=== PATIENT | female | born 1950 | race Caucasian/White ===

== ENCOUNTER → 2023-01-21 12:19 | Outpatient (CLI) | payer MEDICARE, SELFPAY ==
[2023-01-21 13:09] LABS: Add Manual Diff / Slide Review NO; Basophils Absolute Auto 100 /uL (0-100); Basophils Percent Auto 0.9 % (0-2); Eosinophils Absolute Auto 100 /uL (0-450); Eosinophils Percent Auto 1.5 % (2-4); Hematocrit 37.9 % (36-46); Hemoglobin 12.9 g/dL (12.0-16.0); Lymphocytes Absolute Auto 1700 /uL (1100-4500); Mean Corpuscular HGB Conc 34.1 % (30-36); Mean Corpuscular Hemoglobin 33.4 PG (26-34); Monocytes Absolute Auto 400 /uL (0-900); Monocytes Percent Auto 6.2 % (3-14); Neutrophils Absolute Auto 4700 /uL (1500-7000); Neutrophils Percent Auto 67.4 % (50-75); Platelet Count 275 X10^3/uL (150-400); Red Blood Cell Count 3.86 X10^6/uL (4.0-5.2); White Blood Cell Count 6.9 X10^3/uL (4.5-11.0)
[2023-01-21 13:36] LABS: Hemoglobin A1C% w Est Avg Glu 5.7 % (4.0-6.0)
[2023-01-21 20:47] LABS: Alanine Aminotransferase 14 IU/L (<35); Albumin 3.9 g/dL (3.5-5.0); Albumin Globulin Ratio 1.2 (1.0-2.8); Alkaline Phosphatase 88 U/L (38-126); Aspartate Aminotransferase 24 IU/L (14-36); BUN Creatinine Ratio 32.4 (6-22); Bilirubin Total 0.5 mg/dL (0.2-1.3); Blood Urea Nitrogen 22 mg/dL (7-17); Calcium 9.6 mg/dL (8.4-10.2); Carbon Dioxide 28 mmol/L (22-32); Chloride 104 mmol/L (98-107); Estimated Glomerular Filt Rate > 60 mL/min (>60); Globulin 3.2 g/dL (1.7-4.1); Glucose 100 mg/dL (80-110); HEMOLYSIS < 15 (0-50); Potassium 4.4 mmol/L (3.4-5.1); Sodium 137 mmol/L (137-145); Total Protein 7.1 g/dL (6.3-8.2)
[2023-01-21 20:59] LABS: Free T4, Direct Thyroxine 1.48 ng/dL (0.78-2.19)
[2023-01-21 21:13] LABS: Thyroid Stimulating Hormone 9.66 uIU/mL (0.47-4.68)
== END ==
PROVIDERS: PCP Family Medicine; Referring Provider Family Medicine; Visit Provider Family Medicine
DX: E03.9 Hypothyroidism, unspecified (principal); J45.909 Unspecified asthma, uncomplicated
CPT/HCPCS: 36415; 80053; 83036; 84439; 84443; 85025

== ENCOUNTER → 2023-03-25 10:44 | Outpatient (CLI) | payer MEDICARE, SELFPAY ==
[2023-03-25 12:00] LABS: Free T4, Direct Thyroxine 0.91 ng/dL (0.78-2.19)
[2023-03-25 12:14] LABS: Thyroid Stimulating Hormone 7.66 uIU/mL (0.47-4.68)
== END ==
PROVIDERS: PCP Family Medicine; Referring Provider Family Medicine; Visit Provider Family Medicine
DX: E03.9 Hypothyroidism, unspecified (principal)
CPT/HCPCS: 36415; 84439; 84443

== ENCOUNTER → 2023-05-02 09:49 | Outpatient (CLI) | payer MEDICARE, SELFPAY ==
--- NOTE | 2023-05-02 09:53 | DI.MG.S_ITS ---
BILATERAL DIGITAL SCREENING MAMMOGRAM 3D/2D WITH CAD: 05/02/2023 CLINICAL: Routine screening. Personal history of right breast cancer. Comparison is made to exams dated: 06/08/2018 mammogram, 06/08/2018 mammogram, 09/06/2019 mammogram, and 09/29/2020 mammogram - outside facility. There are scattered areas of fibroglandular density in both breasts (category b / 25%-50% glandular tissue). Current study was also evaluated with a Computer Aided Detection (CAD) system. There are benign post operative findings in the right breast. No significant masses, calcifications, or other findings are seen in either breast. There has been no significant interval change. IMPRESSION: BENIGN There is no mammographic evidence of malignancy. A 1 year screening mammogram is recommended. This exam was interpreted at Station ID: [id number]. NOTE: For mammograms, a report in lay terms will be sent to the patient. Approximately 15% of breast malignancies will not be visualized mammographically. In the management of a palpable breast mass, a negative mammogram must not discourage biopsy of a clinically suspicious lesion. Electronically Signed By: Gerri Webb M.D., PH.D mike/penrad:05/02/2023 23:14:10 letter sent: Normal Exam ACR BI-RADS Category 2: Benign Finding(s) 3342F
== END ==
LOC: MAMMO 09:51
PROVIDERS: PCP Family Medicine; Referring Provider Family Medicine; Visit Provider Family Medicine
DX: Z12.31 Encounter for screening mammogram for malignant neoplasm of breast (principal); Z85.3 Personal history of malignant neoplasm of breast; R92.323 Mammographic fibroglandular density, bilateral breasts
CPT/HCPCS: 77063; 77067

== ENCOUNTER → 2023-09-22 11:40 | Outpatient (CLI) | payer MEDICARE, SELFPAY ==
[2023-09-22 13:28] LABS: Free T3, Triiodothyronine Free 3.78 pg/mL (2.77-5.27); Free T4, Direct Thyroxine 1.16 ng/dL (0.78-2.19)
[2023-09-22 13:41] LABS: Thyroid Stimulating Hormone 2.32 uIU/mL (0.47-4.68)
== END ==
PROVIDERS: PCP Family Medicine; Referring Provider Family Medicine; Visit Provider Family Medicine
DX: E03.9 Hypothyroidism, unspecified (principal); Z79.899 Other long term (current) drug therapy
CPT/HCPCS: 36415; 84439; 84443; 84481

== ENCOUNTER → 2024-05-10 14:35 | Outpatient (CLI) | payer MEDICARE, SELFPAY ==
--- NOTE | 2024-05-10 14:37 | DI.RAD.S_ITS ---
PROCEDURE: XR KNEE LT 3V INDICATIONS: left knee locking, pain w/weightbear hx arthrit TECHNIQUE: 3 views of the knee were acquired. COMPARISON: None. FINDINGS: Bones: No fractures or dislocations. No suspicious bony lesions. Tricompartmental joint space narrowing with associated osteophytosis. Subchondral cystic change and early bony deformity of the medial tibiofemoral compartment. Soft tissues: Small joint effusion. No suspicious soft tissue calcifications. IMPRESSION: No acute bony abnormality or significant effusion. Moderate to severe tricompartmental osteoarthritis. Kellgren-Matthew Grade 2-3. Dictated by: Wei Boss M.D. on 05/10/2024 at 16:01 Approved by: Wei Boss M.D. on 05/10/2024 at 16:01
--- NOTE | 2024-05-10 14:37 | DI.RAD.S_ITS ---
PROCEDURE: XR KNEE RT 3V INDICATIONS: acute on chronic arthritis /knee pain TECHNIQUE: 3 views of the knee were acquired. COMPARISON: None. FINDINGS: Bones: No fractures or dislocations. No suspicious bony lesions. Tricompartmental joint space narrowing with associated osteophytosis. Subchondral cystic change and early bony deformity of the medial tibiofemoral compartment. Soft tissues: Trace joint effusion. No suspicious soft tissue calcifications. IMPRESSION: No acute bony abnormality or significant effusion. Moderate to severe tricompartmental osteoarthritis. Kellgren-Matthew Grade 2-3. Dictated by: Wei Boss M.D. on 05/10/2024 at 16:01 Approved by: Wei Boss M.D. on 05/10/2024 at 16:02
== END ==
PROVIDERS: PCP Family Medicine; Referring Provider Student in an Organized Health Care Education/Training Program; Visit Provider Student in an Organized Health Care Education/Training Program
DX: M17.0 Bilateral primary osteoarthritis of knee (principal); M25.462 Effusion, left knee; M25.562 Pain in left knee
CPT/HCPCS: 73562